=== PATIENT | male | born 1980 | race Hispanic/Latino ===

== ENCOUNTER 2017-09-18 12:31 | Emergency (ER) | payer OTHER ==
[2017-09-18] MEDS ORDERED: Ketorolac Tromethamine 30 MG/ML VIAL ONE (12:43)
[2017-09-18] MEDS ORDERED: Dexamethasone 4 mg/ml Vial ONE (12:43)
[2017-09-18] MEDS ORDERED: Morphine 4 MG/ML VIAL ONE ×2 (12:43→13:55)
--- NOTE | 2017-09-18 13:48 | CT ---
CT THORACIC SPINE WITH CORONAL AND SAGITTAL REFORMATIONS: Date: 09/18/17 HISTORY: Fall, low back pain. FINDINGS/IMPRESSION: Degenerative changes are present. No acute fracture or subluxation is identified. POS: [facility]
--- NOTE | 2017-09-18 13:49 | CT ---
CT CERVICAL SPINE WITH CORONAL AND SAGITTAL REFORMATIONS: Date: 09/18/17 HISTORY: Fall, back pain, neck pain. FINDINGS/IMPRESSION: There is loss of cervical lordosis with straightening of the cervical spine. No acute fracture or sub luxation is identified. POS: [facility]
[2017-09-18] MEDS ORDERED: Cyclobenzaprine 10 MG TAB ONE (13:53)
--- NOTE | 2017-09-18 13:56 | CT ---
CT BRAIN WITHOUT CONTRAST: Date: 09/18/17 HISTORY: Fall with loss of consciousness. FINDINGS: No evidence of infarct, hemorrhage, midline shift, or abnormal extra-axial fluid collections are seen . The bony calvarium is intact. There is mucosal disease in the paranasal sinuses. IMPRESSION: No CT evidence of acute intracranial process. POS: [facility]
--- NOTE | 2017-09-18 14:00 | CT ---
LUMBAR SPINE CT WITHOUT IV CONTRAST: Date: 09/18/17 HISTORY: 37-year-old male with history of fall forward, losing consciousness, with sharp pain, particularly in the lumbar region. History of prior back surgery. FINDINGS: No evidence for acute lumbar spine fracture or dislocation, or significant malalignment. There is an overall narrow AP dimension of the bony spinal canal consistent with some congenital or developmental canal stenosis. L1-L2 disc is unremarkable. At L2-L3, there is moderate central canal and lateral recess stenosis. At L3-L4, there is some disc bulging with a focal protrusion with severe central canal and lateral re cess stenosis, with mild foraminal stenosis. There appear to be postoperative changes at L4-L5 with some extensive disc osteophytosis, with result ant severe central spinal canal and lateral recess stenosis with poor definition between the thecal s ac and surrounding tissues. Bilateral moderate foraminal stenosis. At L5-S1, there is prominent central disc osteophytosis with central canal stenosis, as well as sever e bilateral foraminal stenosis, worse on the left side. IMPRESSION: No acute fracture or dislocation. Overall narrowed AP dimension of the bony spinal canal from develop mental or congenital origin. Multilevel variable severity up to severe central canal, lateral recess, and foraminal stenosis, particularly at L4-L5, followed by L3-L4 and L5-S1 levels, with postoperativ e changes at L4-L5. Consider nonemergent follow-up MRI for further assessment, which would allow bett er characterization as to the extent of the stenosis. POS: [facility]
== END 2017-09-18 14:01 | disposition home or self-care (01) ==
LOC: ERS 12:31
DX: M54.42 Lumbago with sciatica, left side (principal)
CPT/HCPCS: 70450; 72125; 72128; 72131; 96374; 96375; 96376; J1100; J1885; J2270